=== PATIENT | male | born 1940 | race Caucasian/White ===

== ENCOUNTER 2017-04-01 14:35 | Emergency (ER) | payer OTHER ==
[~2017-04-01] VITALS: Ht 170.2 cm; Wt 76.4 kg
[2017-04-01 14:50] VITALS: TEMP 36.7; Ht 170.2 cm; Wt 76.4 kg
[2017-04-01] MEDS ORDERED: SUCRALFATE 1 GM TAB PO STA (15:03)
[2017-04-01] MEDS ORDERED: FAMOTIDINE 20 MG TAB PO STA (15:03)
[2017-04-01] MEDS ORDERED: GI COCKTAIL PO STA (15:03)
--- NOTE | 2017-04-01 15:13 | EMERGENCY ROOM VISIT NOTE ---
History Report prepared by Pablo: Rachana Zaidi Under the Supervision of: Dr. Ramos Hawkins M.D. First contact with patient: 14:52 Chief Complaint: GI ASSESSMENT Stated Complaint: GAS History of Present Illness The patient is a 77 year old male who presents to the Emergency Room for a GI assessment. The patient states that he has been experiencing symptoms for the past 2-3 weeks. He feels fine when he is lying still or sleeping. As soon as he gets up and starts moving around during the day is when he will have symptoms. He has intermittent gas and states that he occasionally gets an "odd feeling" in his abdomen that radiates up into his chest. He has lightheadedness , dizziness, and shaking with this feeling. The patient denies any abdominal pain. He has not followed-up with a GI doctor. He has never had a colonoscopy before. The patient went to [place] [facility] 2 weeks ago for these symptoms. He had a CT of his head and an ECG that were both normal. His blood work showed hypokalemia. The patient denies any significant cardiac history. He notes that he has been stressed lately because he is "up at all hours of the day and night " taking care of his who is disabled. Son notes a recent decrease in the patient's activity level. Source of History: patient, family (son) Onset: 2-3 weeks Position: abdomen Quality: other (gas) Timing: intermittent Modifying Factors (Worsening): other (moving around during daytime) Modifying Factors (Relieving): rest (/sleeping) Associated Symptoms: No abdominal pain Note: Pt notes lightheadedness, dizziness, and shaking. Review of Systems See HPI for pertinent positives & negatives. A total of 10 systems reviewed and were otherwise negative. Past Medical & Surgical Medical Problems: (1) Hypertension (2) Hypokalemia Family History Non-pertinent due to advanced age. Social History Smoking Status: Never Smoker Marital Status: Housing Status: lives with significant other Occupation Status: retired Current/Historical Medications Scheduled Amlodipine Besylate (Norvasc), 1 TAB PO DAILY Omeprazole (Prilosec), 20 MG PO DAILY Potassium Chloride (Potassium Chloride Er), 4 CAP PO DAILY Valsartan/Hctz (Diovan Hct 320MG/25MG), 1 TAB PO DAILY [Potassium], 1 TAB PO DAILY Allergies Coded Allergies: No Known Allergies (Unverified , 04/01/17) Physical Exam Vital Signs Date Time Temp Pulse Resp B/P (MAP) Pulse Ox O2 Delivery O2 Flow Rate FiO2 04/01/17 18:56 84 21 151/85 95 04/01/17 18:51 73 15 96 04/01/17 18:46 75 20 96 04/01/17 18:41 81 22 94 04/01/17 18:36 79 17 94 04/01/17 18:31 83 22 149/75 95 04/01/17 18:26 84 24 94 04/01/17 18:21 91 20 94 04/01/17 18:16 76 14 91 04/01/17 18:11 95 19 93 04/01/17 18:06 90 27 94 04/01/17 18:01 90 14 155/83 93 04/01/17 17:56 83 23 93 04/01/17 17:51 84 22 93 04/01/17 17:46 88 23 93 04/01/17 17:41 83 15 94 04/01/17 17:36 78 22 91 04/01/17 17:31 175/81 04/01/17 17:11 93 21 93 04/01/17 17:07 137/70 04/01/17 15:36 163/76 04/01/17 15:35 84 16 04/01/17 15:23 71 04/01/17 15:07 Room Air 04/01/17 15:06 174/85 04/01/17 14:50 36.7 100 20 185/81 98 Room Air Physical Exam GENERAL: Patient is a healthy-appearing well-nourished elderly male. HEAD: Normocephalic atraumatic EYES: Ocular movements intact pupils equal and react to light OROPHARYNX mucous membranes are moist no exudates present no erythema or edema present NECK: Supple no nuchal rigidity CHEST: Good equal expansion LUNGS: Clear and equal to auscultation CARDIAC: Normal S1 and S2 ABDOMEN: Soft nontender no guarding BACK: No CVA tenderness EXTREMITIES: No pain upon palpation normal muscle strength in all groups no clubbing cyanosis or edema NEURO: Patient is following commands and answering questions appropriately. Alert and oriented x3 Cranial Nerves 2-12 grossly intact Medical Decision & Procedures ER Provider Diagnostic Interpretation: Radiology results as stated below per my review and radiologist interpretation: Study: CT angiograms chest HISTORY: Chest pain FINDINGS: Mild atherosclerotic change thoracic aorta. No evidence for aneurysm or dissection. Pulmonary vasculature enhances appropriately. Lungs are clear. There is slight peribronchial thickening. There are moderate degenerative changes of the thoracic spine. No evidence for compression deformity. IMPRESSION: 1. No evidence for aneurysm or dissection. 2. No evidence for pulmonary embolus. 3. Lungs are clear. 4. Slight peribronchial thickening Electronically signed by: Parveen Farris M.D. 04/01/2017 5:02 PM Dictated Date/Time: 04/01/2017 4:[address] angiogram abdomen and pelvis ANGIO ABD/PELVIS WITH CONTRAST CLINICAL HISTORY: Pain pain TECHNIQUE: Transaxial acquisition. Multi axial reformatted images. COMPARISON STUDY: None FINDINGS: Moderate atherosclerotic change of the abdominal aorta as well as iliac vasculature. No significant stenotic process of that structure. 40 % narrowing origin celiac axis. Superior mesenteric artery and inferior mesenteric artery appear unremarkable. Iliac vasculature of the pelvis is unremarkable. There is moderate atherosclerotic change at the level of the inguinal regions with no evidence for significant stenotic process. Renal artery show minimal atherosclerotic narrowing at their origins. Kidneys enhance uniformly. There are several nonobstructing left renal calcifications. Liver spleen and pancreas are unremarkable. There is a small hiatal hernia. The bowel pattern within the abdomen and pelvis is remarkable for scattered colonic diverticulosis. There is no evidence for acute diverticulitis. IMPRESSION: 1. Moderate atherosclerotic change of the abdominal and pelvic arterial vascular 2. No evidence for aneurysm or dissection. 3. 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 4. No additional stenotic process of significance Electronically signed by: Parveen Farris M.D. 04/01/2017 5:08 PM Dictated Date/Time: 04/01/2017 5:02 PM Laboratory Results 04/01/17 15:20 Red Blood Count 5.40, Mean Corpuscular Volume 85.9, Mean Corpuscular Hemoglobin 30.6, Mean Corpuscular Hemoglobin Concent 35.6, Mean Platelet Volume 10.2, Neutrophils (%) (Auto) 53.8, Lymphocytes (%) (Auto) 36.9, Monocytes (%) (Auto) 7.6, Eosinophils (%) (Auto) 1.1, Basophils (%) (Auto) 0.4, Neutrophils # (Auto) 3.07, Lymphocytes # (Auto) 2.10, Monocytes # (Auto) 0.43, Eosinophils # (Auto) 0.06, Basophils # (Auto) 0.02 04/01/17 15:20 Test 04/01/17 15:20 04/01/17 15:26 04/01/17 15:55 White Blood Count 5.69 K/uL (4.8-10.8) Red Blood Count 5.40 M/uL (4.7-6.1) Hemoglobin 16.5 g/dL (14.0-18.0) Hematocrit 46.4 % (42-52) Mean Corpuscular Volume 85.9 fL (80-100) Mean Corpuscular Hemoglobin 30.6 pg (25-34) Mean Corpuscular Hemoglobin Concent 35.6 g/dl (32-36) Platelet Count 218 K/uL (130-400) Mean Platelet Volume 10.2 fL (7.4-10.4) Neutrophils (%) (Auto) 53.8 % Lymphocytes (%) (Auto) 36.9 % Monocytes (%) (Auto) 7.6 % Eosinophils (%) (Auto) 1.1 % Basophils (%) (Auto) 0.4 % Neutrophils # (Auto) 3.07 K/uL (1.4-6.5) Lymphocytes # (Auto) 2.10 K/uL (1.2-3.4) Monocytes # (Auto) 0.43 K/uL (0.11-0.59) Eosinophils # (Auto) 0.06 K/uL (0-0.5) Basophils # (Auto) 0.02 K/uL (0-0.2) RDW Standard Deviation 42.9 fL (36.4-46.3) RDW Coefficient of Variation 13.6 % (11.5-14.5) Immature Granulocyte % (Auto) 0.2 % Immature Granulocyte # (Auto) 0.01 K/uL (0.00-0.02) Est Creatinine Clear Calc Drug Dose 47.4 ml/min Estimated GFR () 66.7 Estimated GFR (Non- 57.6 BUN/Creatinine Ratio 13.6 (10-20) Calcium Level 9.1 mg/dl (8.5-10.1) Total Bilirubin 1.4 mg/dl (0.2-1) Direct Bilirubin 0.2 mg/dl (0-0.2) Aspartate Amino Transf (AST/SGOT) 30 U/L (15-37) Alanine Aminotransferase (ALT/SGPT) 38 U/L (12-78) Alkaline Phosphatase 83 U/L (45-117) Total Creatine Kinase 266 U/L (39-308) Creatine Kinase MB 1.3 ng/ml (0.5-3.6) Creatine Kinase MB Ratio 0.5 (0-3.0) Troponin I < 0.015 ng/ml (0-0.045) Total Protein 7.9 gm/dl (6.4-8.2) Albumin 4.1 gm/dl (3.4-5.0) Lipase 160 U/L (73-393) Bedside Hemoglobin 16.7 g/dl (14.0-18.0) Bedside Hematocrit 49 % (42-52) Bedside Sodium 141 mEq/L (135-144) Bedside Potassium 3.2 mEq/L (3.3-5.0) Bedside Chloride 100 mEq/L (101-112) Bedside Total CO2 25 mEq/l (24-31) Anion Gap 20.0 mmol/L (16-25) Bedside Blood Urea Nitrogen 17 mg/dl (7-18) Bedside Creatinine 1.1 mg/dl (0.6-1.3) Bedside Glucose (other) 131 mg/dl (70-99) Bedside Ionized Calcium (Fernanda) 1.18 mmol/l (1.12-1.32) Urine Color YELLOW Urine Appearance CLEAR (CLEAR) Urine pH 8.0 (4.5-7.5) Urine Specific [place] 1.012 (1.000-1.030) Urine Protein NEG (NEG) Urine Glucose (UA) NEG (NEG) Urine Ketones NEG (NEG) Urine Occult Blood NEG (NEG) Urine Nitrite NEG (NEG) Urine Bilirubin NEG (NEG) Urine Urobilinogen NEG (NEG) Urine Leukocyte Esterase NEG (NEG) Labs reviewed by ED physician. Medications Administered Medications (Trade) Dose Ordered Sig/Madeleine Route Start Time Stop Time Status Last Admin Dose Admin Famotidine (Pepcid Tab) 20 mg NOW STAT PO 04/01/17 15:03 04/01/17 15:07 DC 04/01/17 15:33 20 MG Sucralfate (Carafate Tab) 1 gm NOW STAT PO 04/01/17 15:03 6/25/17 15:07 DC 04/01/17 15:34 1 GM Lidocaine HCl (Viscous Lidocaine 2% Soln) 20 ml STK-MED ONCE .ROUTE 04/01/17 15:30 04/01/17 15:31 DC 04/01/17 15:33 20 ML Al Hydrox/Mg Hydrox/Simethicone (Maalox Max Susp) 30 ml STK-MED ONCE .ROUTE 04/01/17 15:30 04/01/17 15:31 DC 04/01/17 15:33 30 ML Potassium Chloride (Klor-Con Tab) 80 meq NOW STAT PO 04/01/17 16:07 04/01/17 16:08 DC 04/01/17 17:03 80 MEQ ECG Indication: abdominal pain Rate (beats per minute): 85 Rhythm: normal sinus Findings: no acute ischemic change, no ectopy ED Course 1452: Past medical records reviewed. The patient was evaluated in room C6. A complete history and physical examination was performed. 1503: Carafate tab 1 gm PO, Pepcid tab 20 mg PO, GI cocktail 24 ml PO 1540: Potassium Chloride 80 meq PO 1730: I reassessed the patient. He is feeling much better with no further episodes. 1826: I reassessed the patient at this time. He is feeling better and resting comfortably. I discussed the results and treatment plan with the patient. I answered all pertaining questions that he had. He expressed understanding and verbalized agreement. The patient will be discharged home. Medical Decision Differential diagnosis: Etiologies such as appendicitis, diverticulitis, PUD, biliary pathology, UTI, pancreatitis, obstruction, mesenteric ischemia, aortic pathology, infections, inflammatory bowel disease, renal colic, as well as others were entertained. Medication Reconciliation: I attest that I have personally reviewed the patient' s current medication list. Blood Pressure Screening: Patient was found to have an elevated blood pressure and was referred to their primary care doctor for recheck and further treatment. This is a 77-year-old male who presents emergency department complaining of what feels like a gas bubble in his epigastric area that causes him to feel lightheaded from time to time. He has a normal physical exam. His EKG is normal as above and there is no signs of ectopy or ischemia. Based on the patient's complaints he was sent for CAT scan of the chest as well as CAT scan of the abdomen and pelvis. Neither one shows any acute process. The patient was given a GI cocktail Pepcid and Carafate and his potassium was repleted in the emergency department. repeat examination revealed improvement patient's symptoms. I do feel that the patient is safe enough to be discharged home, he does have a stress test scheduled for . I referred him to [facility] and a cardiology as well as gastroenterology. I recommended a clear liquid diet for the next 48 hours and to use Maalox before every meal and at bedtime. Patient and family were in agreement with treatment plan. Impression Primary Impression: Near syncope Scribe Attestation The scribe's documentation has been prepared under my direction and personally reviewed by me in its entirety. I confirm that the note above accurately reflects all work, treatment, procedures, and medical decision making performed by me. Departure Information Dispostion Home / Self-Care Prescriptions Potassium Chloride (POTASSIUM CHLORIDE ER) 10 Meq Cap 4 CAP PO DAILY for 90 Days, #360 CAP 1 Refill Prov: Ramos Hawkins MD 04/01/17 Referrals Blanca Rivera D.O. Forms HOME CARE DOCUMENTATION FORM, IMPORTANT VISIT INFORMATION Patient Instructions ED Near Syncope Vasovagal, My [facility] Additional Instructions Follow up with DR Castro's office Follow up with Dr Chand's office Clear liquid diet next 48 hours Take 5 ml Maalox before every meal and at bedtime Continue Omeprazole You were found to have an elevated blood pressure today (>120 sytolic or >90 diastolic). Per medicare guidelines, you need to follow up with this blood pressure screening with your Primary Care Physician (PCP). For a new PCP call [phone]. You have been examined and treated today on an emergency basis only. This is not a substitute for, or an effort to provide, complete comprehensive medical care. It is impossible to recognize and treat all injuries or illnesses in a single emergency department visit. It is therefore important that you follow up closely with Dr Rivera. Call as soon as possible for an appointment. Thank you for your time and consideration. I look forward to speaking with you again soon. Please don't hesitate to call us if you have any questions.
[2017-04-01] MEDS ORDERED: OPTIRAY 320 IV PRN (15:15)
[2017-04-01] MEDS ORDERED: VALS320T2 PO (15:29)
[2017-04-01] MEDS ORDERED: PRLSR20 PO (15:29)
[2017-04-01] MEDS ORDERED: AMLO10TA2 PO (15:29)
[2017-04-01] MEDS ORDERED: LIDOCAINE HCL 2% VISC SOLN 20 ML UDC ONE (15:30)
[2017-04-01] MEDS ORDERED: ALUMINUM/MAGNESIUM/SIMETH (MAALOX MAX) 30 ML UDC ONE (15:30)
[2017-04-01 15:32] LABS: BASO % 0.4 %; BASO ABS # 0.02 K/uL (0-0.2); COMPLETE YES; EOS % 1.1 %; HEMATOCRIT 46.4 % (42-52); IG% 0.2 %; LYMPH % 36.9 %; MEAN CELL VOLUME 85.9 fL (80-100); MEAN CORPUSCULAR HEMOGLOBIN 30.6 pg (25-34); MEAN CORPUSCULAR HGB CONC 35.6 g/dl (32-36); MEAN PLATELET VOLUME 10.2 fL (7.4-10.4); MONO % 7.6 %; NEUT % 53.8 %; PLATELET COUNT 218 K/uL (130-400); WHITE BLOOD COUNT 5.69 K/uL (4.8-10.8)
[2017-04-01] MEDS ORDERED: POTASSIUM PO (15:32)
[2017-04-01 15:37] LABS: ISTAT CREATININE 1.1 mg/dl (0.6-1.3); ISTAT HEMOGLOBIN 16.7 g/dl (14.0-18.0); ISTAT IONIZED CALCIUM 1.18 mmol/l (1.12-1.32)
[2017-04-01] MEDS ORDERED: POTASSIUM CHLORIDE 20 MEQ/15 ML UDC PO STA (15:40)
[2017-04-01 15:48] LABS: ALT/SGPT 38 U/L (12-78); BLOOD UREA NITROGEN 16 mg/dl (7-18); BUN/CREATININE RATIO 13.6 (10-20); CALCIUM 9.1 mg/dl (8.5-10.1); CARBON DIOXIDE 27 mmol/L (21-32); CHLORIDE 103 mmol/L (98-107); GLUCOSE 125 mg/dl (70-99); POTASSIUM 3.3 mmol/L (3.5-5.1); SODIUM 140 mmol/L (136-145)
[2017-04-01 15:54] LABS: ALKALINE PHOSPHATASE 83 U/L (45-117); AST/SGOT 30 U/L (15-37); CKMB/CK RATIO 0.5 (0-3.0)
[2017-04-01] MEDS ORDERED: POTASSIUM CHLORIDE 20 MEQ TABCR PO STA (16:07)
[2017-04-01 16:16] LABS: URINE APPEARANCE CLEAR (CLEAR); URINE BILIRUBIN NEG (NEG); URINE COLOR YELLOW; URINE NITRITE NEG (NEG); URINE SPECIFIC GRAVITY 1.012 (1.000-1.030); UROBILINOGEN NEG (NEG); ZZUR CULT IF INDIC CLEAN CATCH NO
[2017-04-01 16:19] LABS: MANUAL MICROSCOPIC REQUIRED? NO; REVIEW REQ? NO
--- NOTE | 2017-04-01 17:03 | DIAGNOSTIC IMAGING REPORT ---
Study: CT angiograms chest HISTORY: Chest pain FINDINGS: Mild atherosclerotic change thoracic aorta. No evidence for aneurysm or dissection. Pulmonary vasculature enhances appropriately. Lungs are clear. There is slight peribronchial thickening. There are moderate degenerative changes of the thoracic spine. No evidence for compression deformity. IMPRESSION: 1. No evidence for aneurysm or dissection. 2. No evidence for pulmonary embolus. 3. Lungs are clear. 4. Slight peribronchial thickening Electronically signed by: Parveen Farris M.D. 04/01/2017 5:02 PM Dictated Date/Time: 04/01/2017 4:59 PM
--- NOTE | 2017-04-01 17:09 | DIAGNOSTIC IMAGING REPORT ---
CT angiogram abdomen and pelvis ANGIO ABD/PELVIS WITH CONTRAST CLINICAL HISTORY: Pain pain TECHNIQUE: Transaxial acquisition. Multi axial reformatted images. COMPARISON STUDY: None FINDINGS: Moderate atherosclerotic change of the abdominal aorta as well as iliac vasculature. No significant stenotic process of that structure. 40 % narrowing origin celiac axis. Superior mesenteric artery and inferior mesenteric artery appear unremarkable. Iliac vasculature of the pelvis is unremarkable. There is moderate atherosclerotic change at the level of the inguinal regions with no evidence for significant stenotic process. Renal artery show minimal atherosclerotic narrowing at their origins. Kidneys enhance uniformly. There are several nonobstructing left renal calcifications. Liver spleen and pancreas are unremarkable. There is a small hiatal hernia. The bowel pattern within the abdomen and pelvis is remarkable for scattered colonic diverticulosis. There is no evidence for acute diverticulitis. IMPRESSION: 1. Moderate atherosclerotic change of the abdominal and pelvic arterial vascular 2. No evidence for aneurysm or dissection. 3. 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 4. No additional stenotic process of significance Electronically signed by: Parveen Farris M.D. 04/01/2017 5:08 PM Dictated Date/Time: 04/01/2017 5:02 PM
[2017-04-01 18:56] VITALS: BP 151/85; PULSE 84; O2SAT 95
[2017-04-01] MEDS ORDERED: POTA1CAP2 PO (19:12)
== END 2017-04-01 19:25 | disposition home or self-care (01) ==
LOC: C.EDB 14:37 → C.EDC 19:25
DX: R55 Syncope and collapse (principal); I10 Essential (primary) hypertension; Z79.899 Other long term (current) drug therapy